=== PATIENT | female | born 1955 | race Hispanic/Latino ===

== ENCOUNTER 2022-12-04 10:35 | Outpatient (CLI) | payer MEDICARE | END 2022-12-04 10:36 | disposition home or self-care (01) | LOC: BICMAMMO 10:35 | PROVIDERS: ATTEND Family Medicine | DX: Z13.820 Encounter for screening for osteoporosis (principal); M81.0 Age-related osteoporosis without current pathological fracture | CPT/HCPCS: 77063; 77067; 77080 ==

== ENCOUNTER 2023-03-03 12:37 | Outpatient (CLI) | payer MEDICARE ==
[~2023-03-03 12:37] MED LIST: Magnevist 469MG/ML 20 ML VIAL ONE
== END 2023-03-03 12:38 | disposition home or self-care (01) ==
LOC: BICMRI 12:37
PROVIDERS: ATTEND Family Medicine
DX: D49.89 Neoplasm of unspecified behavior of other specified sites (principal); M76.61 Achilles tendinitis, right leg
CPT/HCPCS: 82565